=== PATIENT | female | born 1980 | race African-American/Black ===

== ENCOUNTER 2018-01-18 07:13 | Inpatient (IN) ==
[2018-01-18] MEDS ORDERED: PANTOPRAZOLE 40 MG VIAL IV STA (07:47)
[2018-01-18] MEDS ORDERED: ONDANSETRON 4 MG/2 ML VIAL IV STA (07:47)
[2018-01-18] MEDS ORDERED: LACTATED RINGERS 1,000 ML IV ONE (07:47)
[2018-01-18 08:13] LABS: Basophils % 0.3 % (0.0-0.8); Eosinophils % 0.5 % (0.00-10.9); Hematocrit 38.1 VOL% (35.7-47.0); Hemoglobin 12.5 GM/DL (12.0-16.0); Immature Granulocytes % 0.3 %; Immature Granulocytes Absolute 0.03 #; Lymphocytes # 1.4 10*3/uL (1.4-4.0); Lymphocytes % 16.3 % (21.3-54.2); Mean Corpuscular HGB Conc 32.8 GM/DL (32-36); Mean Corpuscular Hemoglobin 34 PG (27-34); Mean Corpuscular Volume 103.3 FL (87-102); Mean Platelet Volume 9.3 FL (9.6-12.0); Monocytes # 0.4 10*3/uL (0.11-0.8); Monocytes % 4.3 % (1.7-12.7); Neutrophils # 6.8 10*3/uL (1.4-7.4); Neutrophils % 78.3 % (38.7-73.9); Platelet Count 289 T/CUMM (130-400); Red Blood Count 3.69 MC/CUMM (3.8-5.5); Red Cell Distribution Width 11.6 % (9.3-17.3); White Blood Count 8.8 T/CUMM (4-12)
[2018-01-18 08:41] LABS: Apearance,Urine CLEAR (Clear); Bilirubin,Urine Negative (Negative); Blood, Urine Negative (Negative); Glucose,Urine (UA) Negative (Negative); Ketones,Urine Negative (Negative); Nitrite,Urine Negative (Negative); Protein,Urine 30 MG/DL; RBC,Urine 1 /HPF (0-4); Squamous Epithelial Cell,Urine Occasional /HPF (0-10); Urine Color Yellow (Yellow); Urine Urobilinogen < 2.0 EU/DL (0.2-1.0); WBC,Urine 1 /HPF (0-6)
[2018-01-18 08:42] LABS: Albumin 3.8 G/DL (3.4-5.0); Bilirubin,Total 0.4 MG/DL (0.2-1.0); Calcium 8.8 MG/DL (8.5-10.1); Osmolality,Calculated 277.4 MOS/KG (273-304); Potassium 3.9 MMOL/L (3.5-5.1); Total Protein 8.2 G/DL (6.4-8.3)
[2018-01-18] MEDS ORDERED: MORPHINE 4 MG/1 ML VIAL IV STA (09:14)
[2018-01-18] MEDS ORDERED: ONDANSETRON 4 MG/2 ML VIAL IV PRN (10:02)
[2018-01-18] MEDS ORDERED: cloNIDine 0.1 MG TABLET PO STA (10:23)
[2018-01-18] MEDS ORDERED: cloNIDine 0.1 MG TABLET ONE (10:24)
[2018-01-18] MEDS: LACTATED RINGERS 1,000 ML IV SCH ×2 (12:26→20:00)
[2018-01-18] MEDS: PIPERACILLIN/TAZOBACTAM 3,375 MG in SODIUM CHLORIDE 0.9% 100 ML IV SCH ×2 (12:28→20:35)
[2018-01-19] MEDS: ACETAMINOPHEN 325 MG TABLET PO PRN ×2 (00:05→11:40)
[2018-01-19] MEDS: LACTATED RINGERS 1,000 ML IV SCH ×3 (01:31→20:44)
[2018-01-19 03:56] LABS: Albumin 3.1 G/DL (3.4-5.0); Bilirubin,Total 0.6 MG/DL (0.2-1.0); Calcium 8.1 MG/DL (8.5-10.1); Osmolality,Calculated 278.3 MOS/KG (273-304); Potassium 3.8 MMOL/L (3.5-5.1); Total Protein 6.5 G/DL (6.4-8.3)
[2018-01-19] MEDS: PIPERACILLIN/TAZOBACTAM 3,375 MG in SODIUM CHLORIDE 0.9% 100 ML IV SCH ×3 (04:43→22:10)
[2018-01-19] MEDS ORDERED: LIDOCAINE 1%/EPI INJ 20 ML VIAL ONE (06:54)
[2018-01-19] MEDS ORDERED: ceFAZolin 1,000 MG VIAL ONE (08:05)
[2018-01-19] MEDS ORDERED: TISSUE ADHESIVE 1 EACH APPLICATOR TOP ONE (08:25)
[2018-01-19] MEDS ORDERED: diphenhydrAMINE 50 MG/1 ML VIAL IV PRN (08:26)
[2018-01-19] MEDS ORDERED: MORPHINE 10 MG/1 ML VIAL IV PRN (08:26)
[2018-01-19] MEDS ORDERED: MEPERIDINE 25 MG/1 ML VIAL IV PRN (08:26)
[2018-01-19] MEDS ORDERED: PROMETHAZINE INJ 25 MG in SODIUM CHLORIDE 0.9% 50 ML IV PRN (08:26)
[2018-01-19] MEDS ORDERED: ONDANSETRON 4 MG/2 ML VIAL IV PRN (08:26)
[2018-01-19] MEDS ORDERED: PROPOFOL 200 MG/20 ML VIAL IV ONE (08:55)
[2018-01-19] MEDS ORDERED: KETOROLAC 30 MG/1 ML VIAL ONE (08:56)
[2018-01-19] MEDS ORDERED: ONDANSETRON 4 MG/2 ML VIAL ONE (08:56)
[2018-01-19] MEDS ORDERED: DEXAMETHASONE 10 MG/1 ML VIAL ONE (08:56)
[2018-01-19] MEDS ORDERED: fentaNYL 100 MCG/2 ML VIAL ONE (08:56)
[2018-01-19] MEDS ORDERED: MIDAZOLAM 2 MG/2 ML VIAL ONE (08:56)
[2018-01-19] MEDS ORDERED: ROCURONIUM 100 MG/10 ML VIAL IV ONE (08:57)
[2018-01-19] MEDS ORDERED: PHENYLEPHRINE 1 MG/10 ML SYRINGE IV ONE (08:57)
[2018-01-19] MEDS ORDERED: NEOSTIGMINE 10 MG/10 ML VIAL ONE (08:57)
[2018-01-19] MEDS ORDERED: ACETAMINOPHEN 1,000 MG/100 ML VIAL IV ONE (08:57)
[2018-01-19] MEDS ORDERED: DESFLURANE 1 UNIT/15 MINUTE INH ONE (08:57)
[2018-01-19] MEDS: PANTOPRAZOLE 40 MG TABLET PO SCH (09:53)
[2018-01-19] MEDS: LISINOPRIL 20 MG TABLET PO SCH (11:40)
[2018-01-19] MEDS ORDERED: hydrALAZINE 20 MG/1 ML VIAL IV PRN (15:26)
[2018-01-19 16:36] LABS: Apearance,Urine CLOUDY (Clear); Bilirubin,Urine Negative (Negative); Blood, Urine Negative (Negative); Glucose,Urine (UA) Negative (Negative); Ketones,Urine 5 mg/dL (Negative); Nitrite,Urine Negative (Negative); Protein,Urine 30 MG/DL; Squamous Epithelial Cell,Urine Occasional /HPF (0-10); Urine Color Yellow (Yellow); Urine Specific Gravity 1.046 (1.001-1.035); Urine Urobilinogen < 2.0 EU/DL (0.2-1.0)
[2018-01-19 16:54] LABS: WBC,Urine 6 /HPF (0-6)
[2018-01-20] MEDS: PIPERACILLIN/TAZOBACTAM 3,375 MG in SODIUM CHLORIDE 0.9% 100 ML IV SCH ×2 (05:45→19:55)
[2018-01-20] MEDS: PANTOPRAZOLE 40 MG TABLET PO SCH (09:27)
[2018-01-20] MEDS: LISINOPRIL 20 MG TABLET PO SCH (09:27)
[2018-01-20 12:35] VITALS: BP 142/100
== END 2018-01-20 14:06 | disposition home or self-care (01) | DRG 419 ==
LOC: N.ED 07:13 → N.EDINP 10:02 → N.3E 10:45
PROVIDERS: ADMIT Surgery; ATTEND Surgery
PROC: LAPCHOL (2018-01-19 07:36)